=== PATIENT | male | born 1995 | race Caucasian/White ===

== ENCOUNTER 2016-07-08 20:33 | Emergency (ER) | payer SELFPAY ==
[2016-07-08] MEDS ORDERED: LIDOCAINE/EPI 2% 1:100,000 20 ML VIAL ONE (21:45)
--- NOTE | 2016-07-08 22:52 | ER PHYSICIAN DOCUMENTATION ---
Physician Documentation [facility] Name:Derek Ladd Age:21 yrs Sex:Male :1995 Arrival Date:07/08/2016 Time:20:33 Bed6 Private MD: Yusuf Olivares Disposition: 07/08/16 22:05 Discharged to Home/Self Care. Impression: Leg Laceration, Except Thigh, w/o Complication, Rupture Achilles Tendon. - Condition is Good. - Discharge Instructions: Abrasions - LACERATION, Extrem (suture, staple or tape). - Medical Reconciliation form form. - Follow up: Pablo Krishnamurthy DO; When: Tomorrow; Reason: Continuance of care. - Problem is new. - Symptoms have improved. HPI: 07/08 21:39 This 21 yrs old Male presents to ER via Private Vehicle with complaints of sc Leg Injury - LEFT. 21:39 The patient presents with a laceration, 2 cm(s), clean. The complaints affect the left sc Achilles. Context: The problem was sustained outdoors, resulted from axe to achilles, the patient can fully bear weight, the patient is able to ambulate. Onset: The symptom(s)/episode began/occurred just prior to arrival. Historical: - Allergies: No known drug Allergies; - Home Meds: 1. None - PMHx: None; - Tetanus: > 10 years. - Ebola Screening: : No symptoms or risks identified at this time. . - Immunization history: Flu Vaccine unknown. - Social history: Smoking status: Patient uses tobacco products, current every day smoker. Patient uses alcohol marijuana. ROS: 21:57 Constitutional: Negative for fever, chills, and weight loss. sc Eyes: Negative for injury, pain, redness, and discharge. Neck: Negative for injury, pain, and swelling. Cardiovascular: Negative for chest pain, palpitations, and edema. Respiratory: Negative for shortness of breath, cough, wheezing, and pleuritic chest pain. Back: Negative for injury and pain. Skin: Negative for injury, rash, and discoloration. 21:57 Neuro: Negative for headache, weakness, numbness, tingling, and seizure. sc 21:57 MS/extremity: Positive for laceration. Exam: Constitutional: This is a well developed, well nourished patient who is awake, alert, and in no acute distress. Head/Face: Normocephalic, atraumatic. Eyes: Pupils equal round and reactive to light, extra-ocular motions intact. Lids and lashes normal. Conjunctiva and sclera are non-icteric and not injected. Cornea within normal limits. Periorbital areas with no swelling, redness, or edema. Cardiovascular: Regular rate and rhythm with a normal S1 and S2. No gallops, murmurs, or rubs. Normal PMI, no JVD. No pulse deficits. Respiratory: Lungs have equal breath sounds bilaterally, clear to auscultation and percussion. No rales, rhonchi or wheezes noted. No increased work of breathing, no retractions or nasal flaring. 21:58 Neuro: Awake and alert, GCS 15, oriented to person, place, time, and situation. sc Cranial nerves II-XII grossly intact. Motor strength 5/5 in all extremities. Sensory grossly intact. Cerebellar exam normal. Normal gait. 21:58 Musculoskeletal/extremity: Extremities: grossly normal except: laceration. 21:58 Musculoskeletal/extremity: Tendon exam: specific tendon testing normal through active and passive range of motion Vital Signs: 20:43 BP 129 / 68; Pulse 93; Resp 16; Temp 98.2; Pulse Ox 98% on R/A; Weight 95.25 kg; Height rh 6 ft. 1 in. (185.42 cm); Pain 0/10; 22:51 BP 127 / 62; Pulse 65; Resp 15; Pulse Ox 98% on R/A; Pain 0/10; rh 20:43 Body Mass Index 27.71 (95.25 kg, 185.42 cm) rh Laceration: 22:30 Wound Repair of 2cm ( 0.8in ) subcutaneous laceration to left Achilles. Linear shaped.. sc Distal neuro/vascular/tendon intact. Anesthesia: Wound infiltrated with 4 mls of 2% lidocaine w/ Epi. Wound prep: Simple cleansing by nurse. Skin closed with 4 1-0 Ethilon using Interrupted sutures. Dressed with Bacitracin, Kerlix. Patient tolerated well. MDM: 20:54 Patient medically screened. sc 21:59 Differential diagnosis: laceration repair. Data reviewed: vital signs, nurses notes, sc and as a result, I will discharge patient. Counseling: I had a detailed discussion with the patient and/or guardian regarding: the historical points, exam findings, and any diagnostic results supporting the discharge/admit diagnosis, the need for outpatient follow up. 22:32 Physician consultation: Pablo Krishnamurthy DO was called at 22:33, was contacted at 22:33, wv regarding patient's condition, and will see patient tomorrow. 07/08 20:42 Order name: Wound Care; Complete Time: 20:42 07/08 22:36 Order name: Elevate and Ice Pack; Complete Time: 22:50 sc 07/08 22:36 Order name: ORTHO: Crutches & Training; Complete Time: 22:50 wv 07/08 22:36 Order name: ORTHO: Splint; Complete Time: 22:50 wv Dispensed Medications: No medications were administered Signatures: Viviana Cid, Yusuf Zuniga RN, ma, MD MD wv Nicole Lazaro
--- NOTE | 2016-07-08 22:52 | ER NURSING DOCUMENTATION ---
Nurse's Notes [facility] ([place], [place]) Name:Derek Ladd Age:21 yrs Sex:Male :1995 Arrival Date:07/08/2016 Time:20:33 Bed6 Private MD: Diagnosis:Leg Laceration, Except Thigh, w/o Complication;Rupture Achilles Tendon Presentation: 07/08 20:35 Acuity: PEE 4 ma 20:41 Presenting complaint: Patient states: Pt states he cut his left posterior heel with an ma axe while chopping wood 1-2cm lac noted. Transition of care: Home. 20:41 Method Of Arrival: Private Vehicle ma Triage Assessment: 20:43 General: Appears well developed, well nourished, Behavior is cooperative. Pain: Denies ma pain. Historical: - Allergies: No known drug Allergies; - Home Meds: 1. None - PMHx: None; - Tetanus: > 10 years. - Ebola Screening: : No symptoms or risks identified at this time. . - Immunization history: Flu Vaccine unknown. - Social history: Smoking status: Patient uses tobacco products, current every day smoker. Patient uses alcohol marijuana. Screenin:44 Infectious Disease Risk None. Abuse screen: Denies threats or abuse. Nutritional ma screening: No deficits noted. Vital Signs: 20:43 BP 129 / 68; Pulse 93; Resp 16; Temp 98.2; Pulse Ox 98% on R/A; Weight 95.25 kg; Height rh 6 ft. 1 in. (185.42 cm); Pain 0/10; 22:51 BP 127 / 62; Pulse 65; Resp 15; Pulse Ox 98% on R/A; Pain 0/10; rh 20:43 Body Mass Index 27.71 (95.25 kg, 185.42 cm) rh ED Course: 20:34 Patient arrived in ED. ma1 20:35 Triage completed. ma 20:42 Wound care to laceration located on left Achilles was cleaned with soap and water, rh Patient tolerated well. 20:44 Valuables Given to family. Patient has correct armband on for positive identification. ma Bed in low position. Call light in reach. Side rails up X2. 20:54 Yusuf Pate MD is Attending Physician. wi 21:47 Viviana Cid RN is Primary Nurse. ma 21:47 Wound care was Irrigation Normal Saline. ma 21:59 Report given to Nicole MCKEON. eddie 22:31 Assist Provider Assist provider with laceration repair on left Achilles that was 2.5 rh cm. or less using sutures. Set up tray. Performed by Yusuf Pate MD Patient tolerated well. 22:35 Pablo Krishnamurthy DO is Referral Physician. wi 22:50 Crutch training done. Peter wrap to left ankle Posterior lower leg splint applied on left rh leg. Administered Medications: No medications were administered Outcome: 22:05 Discharge ordered by . wi 22:51 Discharged to home with crutches, with significant other. 22:51 Condition: improved 22:51 Discharge Assessment: Patient awake, alert and oriented x 3. No cognitive and/or functional deficits noted. Patient verbalized understanding of disposition instructions. 22:51 Discharge instructions given to patient, significant other, Instructed on crutch walking, discharge instructions, follow up and referral plans. Ortho Care 22:51 Patient left the ED. 07/09 10:10 Discharge F/U Call: Unable to reach: no answer 07/10 09:44 Discharge F/U Call: Spoke with: patient. Have you made a f/u appointment? yes What is st the one thing you feel we could do to improve? Patient's answer: pt is doing well he saw Yessy yesterday. pt has no questions or concerns. Signatures: Lauryn Govea RN RN st Abuso, Melanie, RN RN ma Chew, Scott, MD MD sc Hofsess, Nicole Rupinder Donohue [id number]
== END 2016-07-08 22:52 | disposition home or self-care (01) ==
LOC: ER 20:33
DX: S81.812A Laceration without foreign body, left lower leg, initial encounter (principal); S86.022A Laceration of left Achilles tendon, initial encounter; W27.0XXA Contact with workbench tool, initial encounter; Y92.89 Other specified places as the place of occurrence of the external cause; Y93.H9 Activity, other involving exterior property and land maintenance, building and construction
CPT/HCPCS: 12001; 29515; 99284